=== PATIENT | male | born 1950 ===

== ENCOUNTER 2023-08-26 14:57 | Outpatient (OUT) | payer OTHER, SELFPAY ==
--- NOTE | 2023-08-26 15:02 | US_ITS ---
[address] [address] Patient Name: LOTUS MEZA MRN: [id number] date: 1950 Sex: M Assigned Patient Location: US Current Patient Location: Accession/Order Number: [id number] Exam Date: 08/26/2023 15:02 Report Date: 08/27/2023 07:48 At the request of: EUGENIO MAI Procedure: US soft tissue head and neck EXAM: US soft tissue head and neck HISTORY: Neck Mass R22.1 ; right neck mass COMPARISON: None. TECHNIQUE: Percutaneous ultrasound of upper right neck. FINDINGS: Approximately 1.3 cm below the skin surface (deep to the sternocleidomastoid muscle and parotid gland) is an oval slightly lobulated hypoechoic heterogeneous avascular mass, 2.7 x 1.4 x 2.9 cm, which corresponds to patient's palpable lump. Partially overlying the mass has a benign-appearing 2.2 x 0.6 x 1.5 cm lymph node. US/US soft tissue head and neck IMPRESSION: 1. Nonspecific mass within right side of neck between parotid gland/sternocleidomastoid muscle and the carotid artery/jugular vein. Ultrasound-guided fine-needle aspiration should be considered. Electronically authenticated by: JACKY GARRISON Date: 08/27/2023 07:48
== END 2023-08-26 14:58 | disposition home or self-care (01) ==
LOC: US 14:57
PROVIDERS: PCP Otolaryngology; Visit Provider Otolaryngology
DX: R22.1 Localized swelling, mass and lump, neck (principal)
CPT/HCPCS: 76536

== ENCOUNTER 2023-09-05 07:52 | Day surgery (SDC) | payer OTHER, SELFPAY ==
--- NOTE | 2023-09-05 08:14 | US_ITS ---
[address] [address] Patient Name: LOTUS MEZA MRN: [id number] date: 1950 Sex: M Assigned Patient Location: US Current Patient Location: US Accession/Order Number: [id number] Exam Date: 09/05/2023 08:15 Report Date: 09/05/2023 09:42 At the request of: EUGENIO MAI Procedure: US biopsy FNA EXAMINATION: US biopsy FNA HISTORY: Neck Mass COMPARISON: No relevant comparison available. TECHNIQUE: After obtaining informed consent, an ultrasound-guided biopsy was performed in the usual sterile manner. The risks and benefits of the open biopsy, fine needle aspiration and core biopsy were explained to the patient and his . The patient declined core biopsy at this time FINDINGS: IMAGING: Ultrasound BIOPSY NEEDLE: 25-gauge, 2 inch SPECIMEN TYPE, #, LOCATION: 4 fine-needle aspirates right neck 3.4 cm mass MEDICATION: 4 cc 1% buffered lidocaine COMPLICATIONS: None. LABORATORY: Pathology sent OTHER: Negative. US/US biopsy FNA IMPRESSION: Uneventful ultrasound guided biopsy. The patient was instructed to obtain follow up care and biopsy results from the referring physician. Electronically authenticated by: MORALES CASPER Date: 09/05/2023 09:42
[2023-09-05 08:15] VITALS: BP 164/93; PULSE 63; O2SAT 95
[2023-09-05] MEDS: LIDOCAINE HCL 10 ML, SODIUM BICARBONATE 1 MEQ INJ (09:05)
--- NOTE | 2023-09-05 09:53 | SUR.PREOP ---
08/24/23 Contacted pt and scheduled ultrasound for 08/26/23. Discussed procedure with pt. 08/29/23 Called pt and reviewed procedure, date, time, and prep.
== END 2023-09-05 09:30 | disposition home or self-care (01) ==
LOC: US 07:52
PROVIDERS: Radiology Diagnostic Radiology; PCP Otolaryngology; Visit Provider Otolaryngology
DX: R22.1 Localized swelling, mass and lump, neck (principal)
CPT/HCPCS: 10005; 88173

== ENCOUNTER → 2023-09-21 09:52 | Day surgery (SDC) | payer OTHER, SELFPAY ==
--- NOTE | 2023-09-21 09:54 | SUR.PREOP ---
09/16/23 Instructed pt on date, time, prep, and procedure.
--- NOTE | 2023-09-21 09:57 | US_ITS ---
[address] [address] Patient Name: LOTUS MEZA MRN: [id number] date: 1950 Sex: M Assigned Patient Location: US Current Patient Location: US Accession/Order Number: [id number] Exam Date: 09/21/2023 10:00 Report Date: 09/21/2023 11:54 At the request of: EUGENIO MAI Procedure: US biopsy ndl core soft tissue EXAMINATION: US biopsy ndl core soft tissue HISTORY: neck mass COMPARISON: Ultrasound soft tissue neck 08/26/2023, CTA neck 08/05/2023, ultrasound biopsy fine-needle aspiration 09/05/2023 TECHNIQUE: After obtaining informed consent, ultrasound-guided fine needle aspiration was performed in the usual sterile manner. FINDINGS: IMAGING: Ultrasound. BIOPSY NEEDLE: 20-gauge spring-loaded core biopsy needle LOCATION: Right neck mass 3.0 x 2.9 x 1.4 cm. SPECIMEN TYPE: Cellular tissue. 4 core samples. LOCAL ANESTHETIC: Buffered Xylocaine. COMPLICATIONS: None. LABORATORY: Prepared slide smears and washings for cell block evaluation. OTHER: Negative. PATHOLOGY: Pending. An addendum will be added when results are available. US/US biopsy ndl core soft tissue IMPRESSION: 1. Uneventful ultrasound guided fine needle aspiration (FNA). 2. Pathology results are pending. Electronically authenticated by: JACKY GARRISON Date: 09/21/2023 11:54
[2023-09-21 10:00] VITALS: BP 168/107; PULSE 66; O2SAT 97
[2023-09-21] MEDS: LIDOCAINE HCL 10 ML, SODIUM BICARBONATE 1 MEQ INJ (10:55)
== END ==
PROVIDERS: Radiology Diagnostic Radiology; PCP Family Medicine; Visit Provider Otolaryngology
DX: C49.0 Malignant neoplasm of connective and soft tissue of head, face and neck (principal)
CPT/HCPCS: 20206; 76942; 88305; 88341; 88342